=== PATIENT | female | born 1935 | race Caucasian/White ===

== ENCOUNTER 2017-09-23 02:28 | Emergency (ER) | payer MEDICARE ==
[~2017-09-23] VITALS: Ht 162.6 cm; Wt 68.0 kg
[~2017-09-23 02:28] MED LIST: ASPI-630 PO; CALC625T20 PO; CHOL100017 PO; GUAI600T47 PO; LEVO75TA5 PO; LORA10TA3 PO; METH-38 PO; MULT1TAB6 PO; OXYB5TAB PO; PANT40TA3 PO; POTA10TA12 PO; RIVA20TA2 PO
[2017-09-23 03:05] LABS: BASO # 0.1 x10^3/uL (0.0-0.2); BASO % 1 % (0-3); EOS # 0.4 x10^3/uL (0.0-0.7); EOS % 6 % (0-3); HEMATOCRIT 30.1 % (36.0-47.0); HEMOGLOBIN 10.5 g/dL (12.0-15.5); LYMPH # 2.9 x10^3/uL (1.0-4.8); LYMPH % 46 % (24-48); MEAN CORPUSCULAR HEMOGLOBIN 34 pg (25-35); MEAN CORPUSCULAR HGB CONC 35 g/dL (31-37); MEAN CORPUSCULAR VOLUME 97 fL (79-100); MONO # 0.6 x10^3/uL (0.0-1.1); MONO % 10 % (0-9); NEUT # 2.3 x10^3uL (1.8-7.7); NEUT % 37 % (31-73); PLATELET COUNT 223 x10^3/uL (140-400); RED CELL DISTRIBUTION WIDTH 11.8 % (11.5-14.5); WHITE BLOOD COUNT 6.2 x10^3/uL (4.0-11.0)
[2017-09-23 03:14] LABS: PROTHROMBIN TIME PATIENT 15.1 SEC (11.7-14.0)
--- NOTE | 2017-09-23 03:39 | PHYS DOC ---
Past Medical History Past Medical History: Hypothyroid, Hypotension, Other Additional Past Medical Histor: Bladder spasms Past Surgical History: Appendectomy, Cholecystectomy, Hysterectomy, Knee Replacement, Tonsillectomy Alcohol Use: None Drug Use: None Adult General Chief Complaint Chief Complaint: LACERATION/AVULSION [facility] HPI Patient is a 81 year old [f__sex] who presents with [] Review of Systems Review of Systems Constitutional: Denies fever or chills [] Eyes: Denies change in visual acuity, redness, or eye pain [] HENT: Denies nasal congestion or sore throat [] Respiratory: Denies cough or shortness of breath [] Cardiovascular: No additional information not addressed in HPI [] GI: Denies abdominal pain, nausea, vomiting, bloody stools or diarrhea [] : Denies dysuria or hematuria [] Musculoskeletal: Denies back pain or joint pain [] Integument: Denies rash or skin lesions [] Neurologic: Denies headache, focal weakness or sensory changes [] Endocrine: Denies polyuria or polydipsia [] All other systems were reviewed and found to be within normal limits, except as documented in this note. Allergies Allergies Allergies Coded Allergies Type Severity Reaction Last Updated Verified clopidogrel Allergy Intermediate Rash 07/24/13 Yes Physical Exam Physical Exam Constitutional: Well developed, well nourished, no acute distress, non-toxic appearance. [] HENT: Normocephalic, atraumatic, bilateral external ears normal, oropharynx moist, no oral exudates, nose normal. [] Eyes: PERRLA, EOMI, conjunctiva normal, no discharge. [] Neck: Normal range of motion, no tenderness, supple, no stridor. [] Cardiovascular:Heart rate regular rhythm, no murmur [] Lungs & Thorax: Bilateral breath sounds clear to auscultation [] Abdomen: Bowel sounds normal, soft, no tenderness, no masses, no pulsatile masses. [] Skin: Warm, dry, no erythema, no rash. [] Back: No tenderness, no CVA tenderness. [] Extremities: No tenderness, no cyanosis, no clubbing, ROM intact, no edema. [] Neurologic: Alert and oriented X 3, normal motor function, normal sensory function, no focal deficits noted. [] Psychologic: Affect normal, judgement normal, mood normal. [] Current Patient Data Vital Signs Vital Signs Date Time Temp Pulse Resp B/P (MAP) Pulse Ox O2 Delivery O2 Flow Rate FiO2 09/23/17 02:34 98.0 60 18 132/61 (84) 99 Room Air 98.0 Lab Values Laboratory Tests Test 09/23/17 02:55 White Blood Count 6.2 x10^3/uL (4.0-11.0) Red Blood Count 3.10 x10^6/uL (3.50-5.40) L Hemoglobin 10.5 g/dL (12.0-15.5) L Hematocrit 30.1 % (36.0-47.0) L Mean Corpuscular Volume 97 fL (79-100) Mean Corpuscular Hemoglobin 34 pg (25-35) Mean Corpuscular Hemoglobin Concent 35 g/dL (31-37) Red Cell Distribution Width 11.8 % (11.5-14.5) Platelet Count 223 x10^3/uL (140-400) Neutrophils (%) (Auto) 37 % (31-73) Lymphocytes (%) (Auto) 46 % (24-48) Monocytes (%) (Auto) 10 % (0-9) H Eosinophils (%) (Auto) 6 % (0-3) H Basophils (%) (Auto) 1 % (0-3) Neutrophils # (Auto) 2.3 x10^3uL (1.8-7.7) Lymphocytes # (Auto) 2.9 x10^3/uL (1.0-4.8) Monocytes # (Auto) 0.6 x10^3/uL (0.0-1.1) Eosinophils # (Auto) 0.4 x10^3/uL (0.0-0.7) Basophils # (Auto) 0.1 x10^3/uL (0.0-0.2) Prothrombin Time 15.1 SEC (11.7-14.0) H Prothrombin Time INR 1.2 (0.8-1.1) H Laboratory Tests 09/23/17 02:55 EKG EKG [] Radiology/Procedures Radiology/Procedures [] Course & Med Decision Making Course & Med Decision Making Pertinent Labs and Imaging studies reviewed. (See chart for details) [] Dragon Disclaimer Dragon Disclaimer This electronic medical record was generated, in whole or in part, using a voice recognition dictation system. Departure Departure Impression: Primary Impression: Vasovagal syncope Additional Impression: Hemorrhage of varicose veins of right lower extremity Disposition: HOME, SELF-CARE Condition: STABLE Referrals: JEREMIAS NEGRETE MD (PCP) Patient Instructions: Bleeding Varicose Veins, Syncope, Wftn-no-Smmk Problem Qualifiers [facility] MEDRANO DO Sep 23, 2017 03:39
[2017-09-23] MEDS ORDERED: NEOMY/BACITR/POLYMYXIN OINT PACKET. TP ONE (04:00)
[2017-09-23 04:30] VITALS: BP 146/65
== END 2017-09-23 04:59 | disposition home or self-care (01) ==
LOC: ER 02:28
DX: I83.91 Asymptomatic varicose veins of right lower extremity (principal); R55 Syncope and collapse; E03.9 Hypothyroidism, unspecified; I10 Essential (primary) hypertension; Z90.49 Acquired absence of other specified parts of digestive tract; Z90.710 Acquired absence of both cervix and uterus; Z90.89 Acquired absence of other organs; Z96.659 Presence of unspecified artificial knee joint; Z88.8 Allergy status to other drugs, medicaments and biological substances
CPT/HCPCS: 36415; 85025; 85610; 99284

== ENCOUNTER → 2019-07-25 | Outpatient (CLI) | payer MEDICARE ==
[~2019-07-25] MED LIST changes: +OXYB-36 PO; -OXYB5TAB PO; -PANT40TA3 PO; +PANT40TA77 PO
--- NOTE | 2019-07-25 08:58 | RAD ---
Ultrasound the abdomen limited. HISTORY: Elevated liver enzymes, R 74.8 Ultrasound was used to evaluate the right upper quadrant of the abdomen. Portions the mid pancreas were normal, the head and tail the pancreas were obscured. Patient had a previous cholecystectomy. Liver was normal in size. There is difficult to fully evaluate. A focal liver lesion was not definitively identified. Is flow in the hepatic veins and portal vein with color imaging and Doppler. Common duct was dilated measuring 29 and 13 mm but the patient's had a cholecystectomy. Intrahepatic bile duct dilatation is not definitively identified. Right kidney is 10.3 cm in length without a mass or hydronephrosis. Lower pole of the right kidney is obscured by bowel gas. IMPRESSION: 1. Dilated common duct, no prior study for comparison, MRCP could be of benefit. 2. Liver within normal limits in size without a definite focal lesion but difficult to fully evaluate. 3. Previous cholecystectomy. Electronically signed by: Montana Nuñez MD (07/25/2019 8:55 AM) [id number]
== END | disposition home or self-care (01) ==
LOC: US 09:15
PROVIDERS: ATTEND Nurse Practitioner Family
DX: R74.8 Abnormal levels of other serum enzymes (principal); Z90.49 Acquired absence of other specified parts of digestive tract
CPT/HCPCS: 76705

== ENCOUNTER → 2019-08-18 | Outpatient (CLI) | payer OTHER ==
--- NOTE | 2019-08-18 12:50 | KCIC ---
BARIUM ENEMA History: Diarrhea and constipation Comparison: None. Findings: Barium enema was performed. Fluoroscopy time 6 minutes 20 seconds, 13 images. [employer] radiograph demonstrates degenerative disc disease greater inferiorly of the lumbar spine. There are multiple clips in the pelvis bilaterally. There has been cholecystectomy, also some clips in the central superior midline of the abdomen. There was significant delay of transit of contrast from the splenic flexure to the transverse colon and subsequently into the ascending colon. There was long segment smooth narrowing of the distal transverse colon during exam with subsequent relaxation apparently due to spasm. However there was never adequate coating of contrast the quick of the cecum and proximal ascending colon to the mid transverse colon for exam. There is gas and stool present. There is scattered colonic diverticulosis greatest of the sigmoid colon. Impression: 1. Exam is limited due to poor contrast coating of the quick of the cecum and ascending colon to level of the mid transverse, cannot accurately exclude underlying mucosal lesion. There was no evidence of colonic obstruction although significant delay of transit of contrast proximal to the level of the distal transverse colon at which there was spasm during the exam. 2. There is colonic diverticulosis greatest of the sigmoid colon. Electronically signed by: Ezekiel Almendarez MD (08/18/2019 12:47 PM) [id number]
== END ==
LOC: KCIC 09:08
PROVIDERS: ATTEND Internal Medicine Gastroenterology
DX: K57.30 Diverticulosis of large intestine without perforation or abscess without bleeding (principal)
CPT/HCPCS: 74270

== ENCOUNTER → 2019-09-01 | Outpatient (CLI) | payer OTHER ==
[~2019-09-01] MED LIST changes: +REGADENOSON 0.4 MG/5 ML DISP.SYRIN. IV ONE
--- NOTE | 2019-09-01 12:14 | CARD ---
MR#: [id number] Date of Study: 09/01/2019 Ordering Physician: CHIP HERNANDEZ, Referring Physician: CHIP HERNANDEZ, Tech: Fadumo Salter APPROVED REPORT EXAM: Two-dimensional and M-mode echocardiogram with Doppler and color Doppler. Other Information Quality : AverageHR: 57bpm INDICATION Atrial Fibrillation Cardiac Disease: CAD RISK FACTORS Hypertension Hyperlipidemia 2D DIMENSIONS Left Atrium(2D)2.9 (1.6-4.0cm)IVSd1.2 (0.7-1.1cm) Aortic Root(2D)2.7 (2.0-3.7cm)LVDd5.1 (3.9-5.9cm) LVOT Diameter2.0 (1.8-2.4cm)PWd1.0 (0.7-1.1cm) LVDs2.1 (2.5-4.0cm)FS (%) 59.6 % SV110.2 mlLVEF(%)88.9 (>50%) Aortic Valve AoV Peak Sudheer.106.6cm/sAoV VTI27.1cm AO Peak GR.4.5mmHgLVOT Peak Sudheer.83.1cm/s LVOT VTI 23.20cmAO Mean GR.2mmHg JANINE (VMAX)2.38oj2ZTR (VTI)2.76cm2 Mitral Valve MV E Hejhbhvt84.1cm/sMV DECEL QSNI260zm MV A Uadrbjxf96.3cm/sMV E Mean Gr.1mmHg MV VFZ74zyR/A Ratio0.9 MVA (PHT)3.49cm2 TDI E/Lateral E'8.8E/Medial E'10.2 Pulmonary Valve PV Peak Jvtimehk03.2cm/sPV Peak Grad.2mmHg Tricuspid Valve TR P. Lutcraao159ao/sRAP DMATGCHZ9khWx TR Peak Gr.19miRzMSZO90glEy Pulmonary Vein S1 Ljhduqoj75.5cm/sD2 Noawbwnz61.8cm/s PVa fiwfcfwb955wzhq LEFT VENTRICLE The left ventricle is normal size. There is normal left ventricular wall thickness. The left ventricu lar systolic function is normal and the ejection fraction is within normal range. The Ejection Fracti on is 50-55%. There is normal LV segmental wall motion. Transmitral Doppler flow pattern is Grade I-a bnormal relaxation pattern. RIGHT VENTRICLE The right ventricle is normal size. There is normal right ventricular wall thickness. The right ventr icular systolic function is normal. ATRIA The left atrium size is normal. The right atrium size is normal. The interatrial septum is intact wit h no evidence for an atrial septal defect or patent foramen ovale as noted on 2-D or Doppler imaging. AORTIC VALVE The aortic valve is calcified but opens well. Doppler and Color Flow revealed no significant aortic r egurgitation. There is no significant aortic valvular stenosis. Calculated aortic valve area is 2.25 cm2 with maximum pressure gradient of 6 mmHg and mean pressure gradient of 3 mmHg. MITRAL VALVE The mitral valve is normal in structure and function. There is no evidence of mitral valve prolapse. There is no mitral valve stenosis. Doppler and Color-flow revealed trace mitral regurgitation. TRICUSPID VALVE The tricuspid valve is normal in structure and function. Doppler and Color Flow revealed mild tricusp id regurgitation with an estiamted PAP of 37 mmHg. There is no tricuspid valve stenosis. PULMONIC VALVE The pulmonic valve is not well visualized. Doppler and Color Flow revealed no pulmonic valvular regur gitation. There is no pulmonic valvular stenosis. GREAT VESSELS The aortic root is normal in size. The IVC is normal in size and collapses >50% with inspiration. PERICARDIAL EFFUSION There is no evidence of significant pericardial effusion. Critical Notification Critical Value: No <Conclusion> The left ventricular systolic function is normal and the ejection fraction is within normal range. Th e Ejection Fraction is 50-55%. There is normal LV segmental wall motion. Doppler and Color Flow revealed mild tricuspid regurgitation with an estiamted PAP of 37 mmHg. Signed by : Sree Storm, Electronically Approved : 09/01/2019 12:13:46
--- NOTE | 2019-09-01 16:54 | RAD ---
MR#: [id number] Date of Study: 09/01/2019 Ordering Physician: CHIP HERNANDEZ, Referring Physician: MESSI WIGGINS Tech: TOMMY Lowe ARRT (Franki) (N) APPROVED REPORT Test Type: Pharmacological Stress Nurse/Tech: Cecelia Obrien RN Test Indications: CAD Cardiac History: Afib, Dyspnea, See EMR Medications: Eliquis, See EMR Medical History: See EMR Resting ECG: SR Resting Heart Rate: 62 bpm Resting Blood Pressure: 188/72mmHg Pretest Chest Pain: No chest pain Nurse/Tech Notes Lungs CTA. Heart tones regular. Consent: The procedure was explained to the patient in lay terms. Informed consent was witnessed. Cash eout was entered into [employer]. History and Stress Test performed by TOMMY Lowe ARRT (R) (N) Pharm. Details Pharmacologic stress testing was performed using 0.4mg per 5ml of regadenoson given intravenously ove r 7-10 seconds. Stress Symptoms Dyspnea POST EXERCISE Reason for Termination: Infusion complete Max HR: 83 bpm Max Blood Pressure: 173/59mmHg Blood Pressure response to exercise: Normal blood pressure response during stress. Heart Rate response to exercise: Pt HR brooke down right after injection with PACs; then increased. Chest Pain: No. Arrhythmia: Yes. Frequent PACs. ST Change: No. INTERPRETATION Stress EKG Conclusion: No evidence of stress induced EKG changes. Imaging Protocol IMAGE PROTOCOL: Rest Tc-99m/stress Tc-99m 1 day Rest: Stress: Viability: Radiopharm.Tc99m GakstotvhXv91n Sestamibi Goda36oOo 33mCi Img Date 09/01/2019 09/01/2019 Inj-Img Zomv47fap. 60min. Rest Admin Site:IV - Right AntecubitalAdministrator:LEEANNE Lara Stress Admin Site: IV - Right AntecubitalAdministrator: TOMMY Lowe ARRT (R)(N) STRESS DATA End Diast. Vol.67.0mlAv. Heart Rate67.0bpm End Syst. Vol.12.0mlCO Index BSA0.0L/min Myocardial Gldl332.0gEject. Qvfplhzt11.0% Stress Rates Pk. Fill Rate3.23EDV/secLVtime Pk. Fill 250.19msec Pk. Empty Rate4.01ESV/secLVtime Pk. Sdiuz413.07msec 1/ Pk. Fill1.46EDV/sec Stress Scores Regional WT0.00Summed WT1.00 Regional WM0.00Summed WM0.00 The rest and stress images show normal perfusion, normal contraction and thickening. LV Perf. Quant 17 Seg. SSS0.00 17 Seg. SRS0.00 17 Seg. SDS0.00 Stress Defect Extent (% LAD)0.00Rest Defect Extent (% LAD)0.00Rev. Defect Extent (% LAD)0.00 Stress Defect Extent (% LCX) 0.00Rest Defect Extent (% LCX)0.00Rev. Defect Extent (% LCX)0.00 Stress Defect Extent (% RCA)0.00Rest Defect Extent (% RCA)0.00Rev. Defect Extent (% RCA)0.00 Stress Defect Extent (% AZIZA)0.00Rest Defect Extent (% AZIZA)0.00Rev. Defect Extent (% AZIZA)0.00 Other Information Quality:Good Risk Assessment: Low Risk Conclusion 1. No evidence of EKG changes with stress testing. 2. Normal perfusion at stress/rest. 3. Low risk study. 4. EF > 60%. Signed by : Sree Storm, Electronically Approved : 09/01/2019 16:54:00
== END | disposition home or self-care (01) ==
LOC: NM 11:12
PROVIDERS: ATTEND Internal Medicine Cardiovascular Disease
DX: I08.2 Rheumatic disorders of both aortic and tricuspid valves (principal); I25.10 Atherosclerotic heart disease of native coronary artery without angina pectoris; I48.91 Unspecified atrial fibrillation
CPT/HCPCS: 78452; 93017; 93306; A9500; J2785